=== PATIENT | male | born 1955 | race Caucasian/White ===

== ENCOUNTER 2016-06-09 12:35 | Emergency (ER) | payer SELFPAY ==
[~2016-06-09] VITALS: Ht 182.9 cm; Wt 103.3 kg
[2016-06-09 12:41] VITALS: BP 143/93; PULSE 93; RESP 16; TEMP 98.1; O2SAT 95
--- NOTE | 2016-06-09 13:10 | RADHPO ---
EXAM DATE/TIME: 06/09/2016 12:57 [facility] COMPARISON: No previous studies available for comparison. INDICATIONS : Fell off ladder, right 4th finger pain MEDICAL HISTORY : None. SURGICAL HISTORY : None. ENCOUNTER: Initial ACUITY: 1 day PAIN SCORE: 10/10 LOCATION: Right 4th finger FINDINGS: Three view examination of the right hand demonstrates dislocation of the PIP joint of the fourth digi t posteriorly. Scattered degenerative changes involving interphalangeal joints and first carpometacar pal joint.. Bony mineralization is normal. CONCLUSION: 1. Dislocation of the PIP joint posteriorly of the fourth digit. 2. No fracture. Akin Hogan MD on June 09, 2016 at 13:07 Board Certified Radiologist. This report was verified electronically.
[2016-06-09] MEDS ORDERED: LIDOCAINE HCL 1% 50 ML VIAL INFIL ONE ×2 (13:30→14:00)
[2016-06-09] MEDS ORDERED: BUPIVACAINE HCL PF 0.5% 10 ML VIAL NERV BLOCK ONE (13:30)
[2016-06-09] MEDS ORDERED: ULTR50TA5 PO (13:48)
[2016-06-09] MEDS ORDERED: MOBI15TA PO (13:48)
--- NOTE | 2016-06-09 13:49 | PD ---
HPI Chief Complaint: Injury Time Seen by Provider: 13:29 Travel History International Travel<30 days: No Contact w/Intl Traveler<30days: No Traveled to known affect area: No History of Present Illness HPI 60-year-old male complains of right fourth finger pain. Patient states that he fell today. Patient denies loss of consciousness. Patient denies any headache or neck pain. Patient denies any chest pain or shortness of breath. Patient denies abdominal pain. Patient denies any back pain. Patient complains of sharp pain localized to right fourth finger. Patient denies any pain radiation. On a scale of 1-10 the pain is an 8. PFSH Past Medical History Arthritis: Yes Tetanus Vaccination: < 5 Years Influenza Vaccination: No Past Surgical History Cholecystectomy: Yes Social History Alcohol Use: Yes (social) Tobacco Use: Yes (1.5 ppd) Substance Use: No Allergies-Medications (Allergen,Severity, Reaction): Coded Allergies: No Known Allergies (Unverified , 06/09/16) Reported Meds & Prescriptions Reported Meds & Active Scripts Active No Active Prescriptions or Reported Medications Review of Systems General / Constitutional: No: Fever Eyes: No: Visual changes HENT: No: Headaches Cardiovascular: No: Chest Pain or Discomfort Respiratory: No: Shortness of Breath Gastrointestinal: No: Abdominal Pain Genitourinary: No: Dysuria Musculoskeletal: No: Pain Skin: No Rash Neurologic: No: Weakness Psychiatric: No: Depression Endocrine: No: Polydipsia Hematologic/Lymphatic: No: Easy Bruising Physical Exam Narrative GENERAL: Well-nourished, well-developed patient. SKIN: Warm and dry. HEAD: Normocephalic. EYES: No scleral icterus. No injection or drainage. NECK: Supple, trachea midline. No JVD or lymphadenopathy. CARDIOVASCULAR: Regular rate and rhythm without murmurs, gallops, or rubs. RESPIRATORY: Breath sounds equal bilaterally. No accessory muscle use. GASTROINTESTINAL: Abdomen soft, non-tender, nondistended. MUSCULOSKELETAL: No cyanosis, or edema. BACK: Nontender without obvious deformity. No CVA tenderness. Patient has deformity on the right fourth finger PIP joint. Sensory motor function distally intact. Data Data Last Documented VS Vital Signs Date Time Temp Pulse Resp B/P Pulse Ox O2 Delivery O2 Flow Rate FiO2 06/09/16 12:41 98.1 93 16 143/93 95 Orders Hand, Complete ([id number]) (06/09/16 ) Bupivacaine Pf 0.5% Inj (Marcaine Pf 0.5 (06/09/16 14:00) Lidocaine 1% Inj (50 Ml) (Xylocaine 1% I (06/09/16 14:00) MDM Medical Decision Making Medical Screen Exam Complete: Yes Emergency Medical Condition: Yes Interpretation(s) Last Impressions Hand X-Ray 06/09/16 0000 Signed Impressions: Service Date/Time: Thursday, June 09, 2016 12:57 - CONCLUSION: 1. Dislocation of the PIP joint posteriorly of the fourth digit. 2. No fracture. Akin Hogan MD Differential Diagnosis Differential diagnosis including sprain, fracture, dislocation. Narrative Course 60-year-old male with right fourth finger injury. Procedures Procedure Narrative 1% lidocaine and 0.5% Marcaine digital block right fourth finger. Finger dislocation of PIP joint was reduced. Finger splint applied. Diagnosis Primary Impression: Dislocation of finger PIP joint Qualified Code: S63.289A - Dislocation of finger PIP joint, initial encounter Patient Instructions: General Instructions Additional Instructions: Take medications as needed for pain. Finger splint. Follow-up with orthopedist or hand surgeon. Med/Other Pt SpecificInfo: Prescription(s) given Scripts Tramadol (Ultram)50 Mg Tab50 Mg PO Q6H PRN (PAIN) #20 TAB Prov:Azam Fermin MD 06/09/16 Meloxicam (Mobic)15 Mg Tab15 Mg PO DAILY #20 TAB Prov:Azam Fermin MD 06/09/16 Disposition: 01 DISCHARGE HOME Condition: Stable Azam Fermin MD Jun 09, 2016 13:49
[2016-06-09] MEDS ORDERED: BUPIVACAINE HCL PF 0.5% 30 ML VIAL NB ONE (14:00)
--- NOTE | 2016-06-09 14:35 | RADHPO ---
EXAM DATE/TIME: 06/09/2016 14:11 [facility] COMPARISON: No previous studies available for comparison. INDICATIONS : Post reduction right 4th finger dislocation MEDICAL HISTORY : None. SURGICAL HISTORY : None. ENCOUNTER: Subsequent ACUITY: 1 day PAIN SCORE: 0/10 LOCATION: Right 4th finger FINDINGS: Examination of the fourth digit of the right hand demonstrates tiny bony fragment anteriorly could be old or new avulsion injury. Scattered degenerative changes. No radiopaque foreign bodies are seen. S oft tissue swelling. CONCLUSION: 4th digit relocated to its anatomic position. Tiny bony fragment anteriorly. Akin Hogan MD on June 09, 2016 at 14:32 Board Certified Radiologist. This report was verified electronically.
== END 2016-06-09 15:25 | disposition home or self-care (01) ==
LOC: PHED 12:35 → PHEFT 15:25
DX: S63.284A Dislocation of proximal interphalangeal joint of right ring finger, initial encounter (principal); F17.200 Nicotine dependence, unspecified, uncomplicated; Z87.39 Personal history of other diseases of the musculoskeletal system and connective tissue; W19.XXXA Unspecified fall, initial encounter
CPT/HCPCS: 26770; 73130; 73140